=== PATIENT | female | born 2000 | race Caucasian/White ===

== ENCOUNTER 2022-11-30 20:49 | Emergency (ER) | payer OTHER ==
[~2022-11-30] VITALS: Ht 165.1 cm; Wt 59.0 kg
[2022-11-30 21:59] VITALS: TEMP 99.3
[2022-11-30 22:29] LABS: APPEARANCE,URINE CLEAR (CLEAR); BILIRUBIN,URINE NEGATIVE (NEGATIVE); BLOOD, URINE NEGATIVE Ery/uL (NEGATIVE); COLOR,URINE YELLOW (YELLOW); KETONES,URINE NEGATIVE (NEGATIVE); LEUKOCYTE ESTERASE ,URINE NEGATIVE (NEGATIVE); NITRITE, URINE NEGATIVE (NEGATIVE); PROTEIN,URINE NEGATIVE (NEGATIVE); UGLUCOSE NEGATIVE (NEGATIVE); UROBILINOGEN,URINE 0.2 EU/dL (0.2)
[2022-11-30 22:33] LABS: BASOPHILS % (AUTO) 0.6 % (0.0-2.0); EOSINOPHILS # (AUTO) 0.2 K/uL (0.0-0.7); EOSINOPHILS % (AUTO) 2.9 % (0.0-6.0); HEMATOCRIT 32 % (33-45); HEMOGLOBIN 10.5 g/dL (11.5-14.8); LYMPHOCYTES # (AUTO) 2.1 K/uL (0.8-4.8); LYMPHOCYTES % (AUTO) 34.8 % (20.0-44.0); MEAN CORPUSCULAR HEMOGLOBIN 26 PG (26.0-33.0); MEAN CORPUSCULAR HGB CONC 33 g/dl (31.0-36.0); MEAN CORPUSCULAR VOLUME 80 fL (82-100); MONOCYTES # (AUTO) 0.6 K/uL (0.1-1.30); NEUTROPHILS # (AUTO) 3.3 K/uL (1.8-8.9); NEUTROPHILS % (AUTO) 52.7 % (43.0-81.0); PLATELET COUNT (AUTO) 294 K/uL (150-450); RED CELL DISTRIBUTION WIDTH 15.7 % (11.5-15.0); WHITE BLOOD COUNT (AUTO) 6.2 K/uL (4.3-11.0)
[2022-11-30 22:42] LABS: PREGNANCY TEST URINE QUAL NEGATIVE (NEGATIVE)
[2022-11-30 22:42] LABS: CALCIUM, SERUM 9.5 mg/dL (8.5-10.1); CREATININE 0.6 mg/dL (0.6-1.3); POTASSIUM 3.7 mmol/L (3.5-5.1)
[2022-12-01 01:55] VITALS: BP 124/91; O2SAT 100
== END 2022-12-01 01:56 | disposition home or self-care (01) ==
LOC: ER 20:52
DX: R10.2 Pelvic and perineal pain (principal); R30.0 Dysuria
CPT/HCPCS: 36415; 76770-TC; 76856-TC; 80048-TC; 84703-TC; 85025-TC

== ENCOUNTER 2023-04-01 19:33 | Emergency (ER) | payer OTHER ==
[~2023-04-01] VITALS: Ht 165.1 cm; Wt 59.0 kg
[2023-04-01 20:23] VITALS: BP 127/83; TEMP 98.6; O2SAT 100
[2023-04-01] MEDS ORDERED: DIPH25CA83 PO (20:57)
[2023-04-01] MEDS ORDERED: FAMO-131 PO (20:57)
[2023-04-01] MEDS ORDERED: PRED50TA PO (20:57)
[2023-04-01] MEDS ORDERED: predniSONE 20 MG TABLET ONE (20:58)
[2023-04-01] MEDS ORDERED: diphenhydrAMINE HCL 25 MG CAPSULE ONE (20:58)
[2023-04-01] MEDS ORDERED: FAMOTIDINE (20 MG) 20 MG TABLET ONE ×2 (20:59→21:00)
[2023-04-01] MEDS: FAMOTIDINE (20 MG) 20 MG TABLET PO ONE (21:05)
[2023-04-01] MEDS: diphenhydrAMINE HCL 50 MG CAPSULE PO ONE (21:05)
[2023-04-01] MEDS: predniSONE 10 MG TABLET PO ONE (21:05)
== END 2023-04-01 21:22 | disposition home or self-care (01) ==
LOC: ER 19:36
DX: L50.9 Urticaria, unspecified (principal)
CPT/HCPCS: 99284; Q0163; J7512